=== PATIENT | female | born 1960 ===

== ENCOUNTER 2017-03-31 20:18 | Inpatient (IN) ==
[2017-04-01] MEDS ORDERED: diphenhydrAMINE CAP 25 MG CAPSULE PO PRN (00:06)
[2017-04-01] MEDS ORDERED: MORPHINE 2 MG/1 ML SYRINGE IV PRN (00:06)
[2017-04-01] MEDS ORDERED: DEXTROSE 50% 25 GM/50 ML VIAL IV PRN ×2 (00:06)
[2017-04-01] MEDS ORDERED: GLUCAGON 1 MG VIAL IM PRN ×2 (00:06)
[2017-04-01] MEDS ORDERED: guaiFENesin/DM ER 600-30 MG TABLET PO PRN (00:06)
[2017-04-01] MEDS ORDERED: ACETAMINOPHEN 325 MG TABLET PO PRN (00:06)
[2017-04-01 00:09] LABS: Basophils % 0.5 % (0.0-0.8); Eosinophils # 0.2 10*3/uL (0.0-0.87); Eosinophils % 3.7 % (0.00-10.9); Hematocrit 38.2 VOL% (35.7-47.0); Immature Granulocytes % 0.5 %; Immature Granulocytes Absolute 0.03 #; Lymphocytes # 1.4 10*3/uL (1.4-4.0); Lymphocytes % 23.6 % (21.3-54.2); Mean Corpuscular Hemoglobin 32 PG (27-34); Mean Corpuscular Volume 92.7 FL (87-102); Mean Platelet Volume 13.1 FL (9.6-12.0); Monocytes # 0.4 10*3/uL (0.11-0.8); Neutrophils # 3.8 10*3/uL (1.4-7.4); Neutrophils % 64.7 % (38.7-73.9); Platelet Count 116 T/CUMM (130-400); Red Blood Count 4.12 MC/CUMM (3.8-5.5); Red Cell Distribution Width 13.2 % (9.3-17.3); White Blood Count 5.9 T/CUMM (4-12)
[2017-04-01] MEDS ORDERED: ALBUTEROL/IPRATROPIUM 3 ML NEB RESP TX PRN (00:14)
[2017-04-01 00:36] LABS: Alanine Aminotransferase 26 U/L (13-56); Albumin 2.5 G/DL (3.4-5.0); Alkaline Phosphatase 202 U/L (45-117); Aspartate Amino Transferase 30 U/L (0-37); Bilirubin,Total < 0.39 MG/DL (0.2-1.0); Blood Urea Nitrogen 15 MG/DL (7-18); Glucose 303 MG/DL (74-106); Osmolality,Calculated 292.3 MOS/KG (273-304); Potassium 4.1 MMOL/L (3.5-5.1); Sodium 141 MMOL/L (136-145); Total Protein 6.7 G/DL (6.4-8.3); Troponin I Only < 0.015 NG/ML (0.00-0.045)
[2017-04-01] MEDS: ENOXAPARIN 40 MG/0.4 ML SYRINGE SUBCUT SCH ×2 (01:38→21:51)
[2017-04-01] MEDS ORDERED: NITROGLYCERIN SL 0.4 MG TABLET SL PRN (05:13)
[2017-04-01 05:20] LABS: Basophils % 0.3 % (0.0-0.8); Eosinophils # 0.2 10*3/uL (0.0-0.87); Eosinophils % 3.3 % (0.00-10.9); Hematocrit 38.3 VOL% (35.7-47.0); Hemoglobin 12.7 GM/DL (12.0-16.0); Immature Granulocytes % 0.3 %; Immature Granulocytes Absolute 0.02 #; Lymphocytes # 1.7 10*3/uL (1.4-4.0); Lymphocytes % 29.3 % (21.3-54.2); Mean Corpuscular HGB Conc 33.2 GM/DL (32-36); Mean Corpuscular Hemoglobin 31 PG (27-34); Mean Corpuscular Volume 94.6 FL (87-102); Mean Platelet Volume 11.8 FL (9.6-12.0); Monocytes # 0.4 10*3/uL (0.11-0.8); Neutrophils # 3.5 10*3/uL (1.4-7.4); Neutrophils % 59.8 % (38.7-73.9); Platelet Count 139 T/CUMM (130-400); Red Blood Count 4.05 MC/CUMM (3.8-5.5); Red Cell Distribution Width 13.2 % (9.3-17.3); White Blood Count 5.8 T/CUMM (4-12)
[2017-04-01 05:41] LABS: Alanine Aminotransferase 25 U/L (13-56); Albumin 2.4 G/DL (3.4-5.0); Alkaline Phosphatase 183 U/L (45-117); Aspartate Amino Transferase 30 U/L (0-37); Blood Urea Nitrogen 15 MG/DL (7-18); Calcium 8.4 MG/DL (8.5-10.1); Glucose 280 MG/DL (74-106); Osmolality,Calculated 289.4 MOS/KG (273-304); Potassium 4.3 MMOL/L (3.5-5.1); Sodium 140 MMOL/L (136-145); Total Protein 6.3 G/DL (6.4-8.3); Troponin I Only < 0.015 NG/ML (0.00-0.045)
[2017-04-01] MEDS ORDERED: ASPIRIN CHEW 81 MG TABLET PO ONE ×2 (07:16→07:22)
[2017-04-01 08:28] LABS: Troponin I Only < 0.015 NG/ML (0.00-0.045)
[2017-04-01] MEDS: INSULIN LISPRO 100 UNIT/ML SUBCUT SCH ×5 (08:34→21:49)
[2017-04-01] MEDS ORDERED: ASPIRIN EC 325 MG TABLET PO SCH (09:30)
[2017-04-01] MEDS ORDERED: MAGNESIUM SULF RIDER 2 GM in PREMIX 1 EACH IV PRN (09:33)
[2017-04-01] MEDS ORDERED: POTASSIUM CHLORIDE RIDER 10 MEQ in PREMIX 1 EACH IV PRN (09:33)
[2017-04-01] MEDS ORDERED: SODIUM CHLORIDE 0.45% 1,000 ML IV SCH (10:00)
[2017-04-01] MEDS ORDERED: DIAZEPAM 5 MG TABLET PO ONE (10:30)
[2017-04-01] MEDS: PANTOPRAZOLE 40 MG TABLET PO SCH (10:36)
[2017-04-01 10:51] LABS: INR 1.1
[2017-04-01 10:56] LABS: Apearance,Urine Slightly Hazy (Clear); Bacteria,Urine Many /HPF (Few); Bilirubin,Urine Negative (Negative); Blood, Urine Moderate mg/dL (Negative); Glucose,Urine (UA) 50 mg/dL (Negative); Ketones,Urine Negative (Negative); Nitrite,Urine Negative (Negative); Protein,Urine 30 MG/DL; RBC,Urine 50 /HPF (0-4); Urine Color Yellow (Yellow); Urine Specific Gravity 1.017 (1.001-1.035); Urine Urobilinogen < 2.0 EU/DL (0.2-1.0); WBC,Urine 14 /HPF (0-6)
[2017-04-01] MEDS ORDERED: diphenhydrAMINE CAP 50 MG CAPSULE PO ONE (11:00)
[2017-04-01 11:26] LABS: Risk Ratio 3.51; VLDL CHOLESTEROL 26.6 MG/DL
[2017-04-01] MEDS ORDERED: LIDOCAINE 1% 20 ML VIAL ONE (11:59)
[2017-04-01] MEDS ORDERED: HEPARIN/NACL 0.9% 2 UNITS/ML 2,000 ML IV ONE (11:59)
[2017-04-01] MEDS ORDERED: VERAPAMIL 5 MG/2 ML VIAL ONE (12:42)
[2017-04-01] MEDS ORDERED: NITROGLYCERIN DRIP 50 MG/250 ML BOTTLE IV ONE (12:42)
[2017-04-01] MEDS ORDERED: fentaNYL 100 MCG/2 ML VIAL ONE (12:56)
[2017-04-01] MEDS ORDERED: MIDAZOLAM 2 MG/2 ML VIAL ONE (12:56)
[2017-04-01] MEDS ORDERED: ENOXAPARIN 60 MG/0.6 ML SYRINGE ONE (13:08)
[2017-04-01] MEDS: FLUCONAZOLE 200 MG TABLET PO SCH (14:22)
[2017-04-01] MEDS: CLOTRIMAZOLE 1% CREAM 15 GM TUBE TOP SCH ×2 (15:03→21:50)
[2017-04-01] MEDS ORDERED: INSULIN GLARGINE 100 UNIT/ML SUBCUT SCH (21:00)
[2017-04-01] MEDS: SIMVASTATIN 20 MG TABLET PO SCH (21:52)
[2017-04-02 05:46] LABS: Basophils % 0.4 % (0.0-0.8); Eosinophils # 0.2 10*3/uL (0.0-0.87); Eosinophils % 3.3 % (0.00-10.9); Hematocrit 38.3 VOL% (35.7-47.0); Hemoglobin 13.1 GM/DL (12.0-16.0); Immature Granulocytes % 0.4 %; Immature Granulocytes Absolute 0.02 #; Lymphocytes # 1.5 10*3/uL (1.4-4.0); Lymphocytes % 29.8 % (21.3-54.2); Mean Corpuscular HGB Conc 34.2 GM/DL (32-36); Mean Corpuscular Hemoglobin 32 PG (27-34); Mean Corpuscular Volume 92.3 FL (87-102); Mean Platelet Volume 13.3 FL (9.6-12.0); Monocytes # 0.4 10*3/uL (0.11-0.8); Monocytes % 7.4 % (1.7-12.7); Neutrophils % 58.7 % (38.7-73.9); Platelet Count 109 T/CUMM (130-400); Red Blood Count 4.15 MC/CUMM (3.8-5.5); Red Cell Distribution Width 13.3 % (9.3-17.3); White Blood Count 5.1 T/CUMM (4-12)
[2017-04-02 06:02] LABS: Calcium 8.1 MG/DL (8.5-10.1); Osmolality,Calculated 279.5 MOS/KG (273-304); Potassium 4.3 MMOL/L (3.5-5.1)
[2017-04-02 06:06] LABS: Giant Platelets Few; Hypochromasia 1+; Platelet Estimate Decreased
[2017-04-02] MEDS: FLUCONAZOLE 200 MG TABLET PO SCH (08:42)
[2017-04-02] MEDS: PANTOPRAZOLE 40 MG TABLET PO SCH (08:42)
[2017-04-02] MEDS: ASPIRIN EC 81 MG TABLET PO SCH (08:42)
[2017-04-02] MEDS ORDERED: ceFAZolin 1,000 MG VIAL IRRIG ONE (10:52)
[2017-04-02] MEDS: INSULIN LISPRO 100 UNIT/ML SUBCUT SCH ×7 (11:03→20:21)
[2017-04-02] MEDS: CLOTRIMAZOLE 1% CREAM 15 GM TUBE TOP SCH ×2 (13:02→20:23)
[2017-04-02] MEDS: cefTRIAXone 1,000 MG in SYRINGE 1 EACH IV SCH (13:56)
[2017-04-02] MEDS: ENOXAPARIN 40 MG/0.4 ML SYRINGE SUBCUT SCH (20:21)
[2017-04-02] MEDS: INSULIN GLARGINE 100 UNIT/ML SUBCUT SCH (20:22)
[2017-04-02] MEDS: SIMVASTATIN 20 MG TABLET PO SCH (20:22)
[2017-04-03 05:17] LABS: Basophils % 0.4 % (0.0-0.8); Eosinophils # 0.2 10*3/uL (0.0-0.87); Eosinophils % 3.5 % (0.00-10.9); Hematocrit 40.5 VOL% (35.7-47.0); Hemoglobin 13.9 GM/DL (12.0-16.0); Immature Granulocytes % 0.4 %; Immature Granulocytes Absolute 0.02 #; Lymphocytes # 1.7 10*3/uL (1.4-4.0); Lymphocytes % 30.3 % (21.3-54.2); Mean Corpuscular HGB Conc 34.3 GM/DL (32-36); Mean Corpuscular Hemoglobin 32 PG (27-34); Mean Platelet Volume 12.1 FL (9.6-12.0); Monocytes # 0.4 10*3/uL (0.11-0.8); Monocytes % 7.3 % (1.7-12.7); Neutrophils # 3.2 10*3/uL (1.4-7.4); Neutrophils % 58.1 % (38.7-73.9); Platelet Count 109 T/CUMM (130-400); Red Cell Distribution Width 13.1 % (9.3-17.3); White Blood Count 5.5 T/CUMM (4-12)
[2017-04-03 05:39] LABS: Giant Platelets Few; Hypochromasia 1+; Platelet Estimate Decreased
[2017-04-03 06:01] LABS: Albumin 2.6 G/DL (3.4-5.0); Calcium 8.9 MG/DL (8.5-10.1); Osmolality,Calculated 280.4 MOS/KG (273-304); Potassium 4.2 MMOL/L (3.5-5.1); Total Protein 6.9 G/DL (6.4-8.3)
[2017-04-03] MEDS ORDERED: ceFAZolin 1,000 MG in SYRINGE 1 EACH IV ONE (07:00)
[2017-04-03] MEDS ORDERED: ceFAZolin 1,000 MG VIAL IRRIG ONE (07:00)
[2017-04-03] MEDS: INSULIN LISPRO 100 UNIT/ML SUBCUT SCH ×7 (07:43→21:03)
[2017-04-03] MEDS ORDERED: DIAZEPAM 5 MG TABLET PO ONE (09:00)
[2017-04-03] MEDS ORDERED: diphenhydrAMINE CAP 50 MG CAPSULE PO ONE (09:00)
[2017-04-03] MEDS ORDERED: LIDOCAINE 2%/EPI 20 ML VIAL ONE (09:32)
[2017-04-03] MEDS ORDERED: HEPARIN/NACL 0.9% 2 UNITS/ML 2,000 ML IV ONE (09:32)
[2017-04-03] MEDS ORDERED: ceFAZolin 1,000 MG VIAL ONE ×2 (09:33→09:38)
[2017-04-03] MEDS ORDERED: fentaNYL 100 MCG/2 ML VIAL ONE (09:33)
[2017-04-03] MEDS ORDERED: MIDAZOLAM 2 MG/2 ML VIAL ONE (09:33)
[2017-04-03] MEDS: PANTOPRAZOLE 40 MG TABLET PO SCH (11:46)
[2017-04-03] MEDS: FLUCONAZOLE 200 MG TABLET PO SCH (11:46)
[2017-04-03] MEDS: ASPIRIN EC 81 MG TABLET PO SCH (11:46)
[2017-04-03] MEDS: CLOTRIMAZOLE 1% CREAM 15 GM TUBE TOP SCH (11:47)
[2017-04-03] MEDS: cefTRIAXone 1,000 MG in SYRINGE 1 EACH IV SCH (13:05)
[2017-04-03] MEDS: NYSTATIN POWDER 15 GM BOTTLE TOP SCH ×2 (14:43→21:01)
[2017-04-03] MEDS: LISINOPRIL 10 MG TABLET PO SCH (16:21)
[2017-04-03] MEDS: ERTAPENEM 1,000 MG in SODIUM CHLORIDE 0.9% 100 ML IV SCH (16:30)
[2017-04-03] MEDS: ENOXAPARIN 40 MG/0.4 ML SYRINGE SUBCUT SCH (21:01)
[2017-04-03] MEDS: INSULIN GLARGINE 100 UNIT/ML SUBCUT SCH (21:02)
[2017-04-03] MEDS: SIMVASTATIN 20 MG TABLET PO SCH (21:02)
[2017-04-04 05:40] LABS: Calcium 8.6 MG/DL (8.5-10.1); Osmolality,Calculated 284.4 MOS/KG (273-304); Potassium 4.1 MMOL/L (3.5-5.1)
[2017-04-04 06:14] LABS: Basophils % 0.4 % (0.0-0.8); Eosinophils # 0.2 10*3/uL (0.0-0.87); Eosinophils % 2.7 % (0.00-10.9); Hematocrit 39.9 VOL% (35.7-47.0); Hemoglobin 13.3 GM/DL (12.0-16.0); Immature Granulocytes % 0.5 %; Immature Granulocytes Absolute 0.03 #; Lymphocytes # 1.5 10*3/uL (1.4-4.0); Lymphocytes % 26.7 % (21.3-54.2); Mean Corpuscular HGB Conc 33.3 GM/DL (32-36); Mean Corpuscular Hemoglobin 31 PG (27-34); Mean Corpuscular Volume 93.2 FL (87-102); Mean Platelet Volume 13.1 FL (9.6-12.0); Monocytes # 0.4 10*3/uL (0.11-0.8); Monocytes % 7.5 % (1.7-12.7); Neutrophils # 3.5 10*3/uL (1.4-7.4); Neutrophils % 62.2 % (38.7-73.9); Platelet Count 108 T/CUMM (130-400); Red Blood Count 4.28 MC/CUMM (3.8-5.5); Red Cell Distribution Width 13.2 % (9.3-17.3); White Blood Count 5.6 T/CUMM (4-12)
[2017-04-04] MEDS ORDERED: CLOPIDOGREL 75 MG TABLET PO SCH (10:00)
[2017-04-04] MEDS: NYSTATIN POWDER 15 GM BOTTLE TOP SCH ×2 (10:05→16:20)
[2017-04-04] MEDS: ASPIRIN EC 81 MG TABLET PO SCH (10:05)
[2017-04-04] MEDS: FLUCONAZOLE 200 MG TABLET PO SCH (10:05)
[2017-04-04] MEDS: LISINOPRIL 10 MG TABLET PO SCH (10:05)
[2017-04-04] MEDS: PANTOPRAZOLE 40 MG TABLET PO SCH (10:05)
[2017-04-04] MEDS: INSULIN LISPRO 100 UNIT/ML SUBCUT SCH ×4 (10:06→13:15)
[2017-04-04 13:37] VITALS: BP 121/65
[2017-04-04] MEDS: ERTAPENEM 1,000 MG in SODIUM CHLORIDE 0.9% 100 ML IV SCH (15:19)
== END 2017-04-04 15:53 | disposition home health service (06) | DRG 171 ==
LOC: N.2E 22:19 → SUATTDRO 22:19 → N.CVR 04-01 08:16 → N.ICU 04-01 11:07 → N.TELEN 04-03 14:50
PROVIDERS: ADMIT Internal Medicine; ATTEND Hospitalist
PROC: CLCCHCL (ICD-10-PCS; 2017-04-01 13:45)

== ENCOUNTER 2017-09-04 18:47 | Inpatient (IN) ==
[2017-09-04] MEDS ORDERED: NITROGLYCERIN SL 0.4 MG TABLET SL STA ×2 (19:23→22:11)
[2017-09-04] MEDS ORDERED: DEXTROSE 50% 25 GM/50 ML VIAL IV PRN (22:11)
[2017-09-04] MEDS ORDERED: LORATADINE 10 MG TABLET PO PRN (22:11)
[2017-09-04] MEDS ORDERED: FUROSEMIDE 40 MG/4 ML VIAL IV STA (22:11)
[2017-09-04] MEDS ORDERED: GLUCAGON 1 MG VIAL IM PRN (22:11)
[2017-09-04] MEDS ORDERED: ONDANSETRON 4 MG/2 ML VIAL IV PRN (22:11)
[2017-09-04 22:41] LABS: Basophils % 0.2 % (0.0-0.8); Eosinophils % 0.2 % (0.00-10.9); Hematocrit 43.5 VOL% (35.7-47.0); Hemoglobin 14.6 GM/DL (12.0-16.0); Immature Granulocytes % 0.4 %; Immature Granulocytes Absolute 0.02 #; Lymphocytes # 0.7 10*3/uL (1.4-4.0); Lymphocytes % 14.1 % (21.3-54.2); Mean Corpuscular HGB Conc 33.6 GM/DL (32-36); Mean Corpuscular Hemoglobin 31 PG (27-34); Mean Corpuscular Volume 92.9 FL (87-102); Mean Platelet Volume 12.4 FL (9.6-12.0); Monocytes # 0.1 10*3/uL (0.11-0.8); Monocytes % 1.4 % (1.7-12.7); Neutrophils # 4.3 10*3/uL (1.4-7.4); Neutrophils % 83.7 % (38.7-73.9); Platelet Count 105 T/CUMM (130-400); Red Blood Count 4.68 MC/CUMM (3.8-5.5); Red Cell Distribution Width 13.4 % (9.3-17.3); White Blood Count 5.2 T/CUMM (4-12)
[2017-09-04 22:47] LABS: ABG Base Excess -1.3 MMOL/L (-2.5-2.5); ABG HCO3 23.3 MMOL/L (20-26); ABG Oxygen Saturation 95.2 % (95-100); ABG PCO2 34.9 MM HG (35-48); ABG PH 7.417 (7.35-7.45); ABG PO2 76.3 MM HG (80-95); ABG TCO2 19.2 MMOL/L (23-27); Allen Test Positive; Pt O2 Delivery Device Room Air
[2017-09-04] MEDS: MORPHINE 4 MG/1 ML VIAL IV SCH (22:47)
[2017-09-04] MEDS: INSULIN REGULAR 100 UNIT/ML SUBCUT SCH (22:47)
[2017-09-04] MEDS: CARVEDILOL 3.125 MG TABLET PO SCH (22:47)
[2017-09-04] MEDS: PRAVASTATIN 20 MG TABLET PO SCH (22:48)
[2017-09-04] MEDS: GABAPENTIN 100 MG CAPSULE PO SCH (22:48)
[2017-09-04 23:12] LABS: Albumin 2.8 G/DL (3.4-5.0); Bilirubin,Total 0.7 MG/DL (0.2-1.0); Calcium 9.1 MG/DL (8.5-10.1); Osmolality,Calculated 296.5 MOS/KG (273-304); Potassium 3.8 MMOL/L (3.5-5.1)
[2017-09-04] MEDS: ALBUTEROL/IPRATROPIUM 3 ML NEB RESP TX SCH (23:40)
[2017-09-05] MEDS: MUPIROCIN 2% OINT 22 GM TUBE TOP SCH ×4 (00:33→21:25)
[2017-09-05] MEDS ORDERED: INSULIN GLARGINE 100 UNIT/ML SUBCUT SCH ×3 (01:00→11:43)
[2017-09-05] MEDS: INSULIN REGULAR 100 UNIT/ML SUBCUT SCH ×5 (01:21→21:26)
[2017-09-05] MEDS: MORPHINE 4 MG/1 ML VIAL IV SCH ×6 (03:45→23:08)
[2017-09-05 03:48] LABS: Hematocrit 41.9 VOL% (35.7-47.0); Hemoglobin 14.2 GM/DL (12.0-16.0); Immature Granulocytes % 0.5 %; Immature Granulocytes Absolute 0.03 #; Lymphocytes # 0.7 10*3/uL (1.4-4.0); Lymphocytes % 12.2 % (21.3-54.2); Mean Corpuscular HGB Conc 33.9 GM/DL (32-36); Mean Corpuscular Hemoglobin 32 PG (27-34); Mean Corpuscular Volume 93.5 FL (87-102); Mean Platelet Volume 13.2 FL (9.6-12.0); Monocytes % 0.7 % (1.7-12.7); Neutrophils # 4.8 10*3/uL (1.4-7.4); Neutrophils % 86.6 % (38.7-73.9); Platelet Count 84 T/CUMM (130-400); Red Blood Count 4.48 MC/CUMM (3.8-5.5); Red Cell Distribution Width 13.3 % (9.3-17.3); White Blood Count 5.6 T/CUMM (4-12)
[2017-09-05] MEDS: ALBUTEROL/IPRATROPIUM 3 ML NEB RESP TX SCH ×6 (03:52→23:54)
[2017-09-05 04:28] LABS: Calcium 8.9 MG/DL (8.5-10.1); Osmolality,Calculated 305.7 MOS/KG (273-304); Risk Ratio 3.2; VLDL CHOLESTEROL 12.8 MG/DL
[2017-09-05] MEDS ORDERED: INSULIN REGULAR 100 UNIT/ML IV ONE ×3 (05:08→15:51)
[2017-09-05 06:00] LABS: Apearance,Urine CLEAR (Clear); Bacteria,Urine Occasional /HPF (Few); Bilirubin,Urine Negative (Negative); Blood, Urine Small mg/dL (Negative); Glucose,Urine (UA) >=500 mg/dL (Negative); Ketones,Urine Negative (Negative); Nitrite,Urine Negative (Negative); Protein,Urine Negative; RBC,Urine 1 /HPF (0-4); Squamous Epithelial Cell,Urine Occasional /HPF (0-10); Urine Color Straw (Yellow); Urine Specific Gravity 1.022 (1.001-1.035); Urine Urobilinogen < 2.0 EU/DL (0.2-1.0); WBC,Urine 24 /HPF (0-6)
[2017-09-05] MEDS: SODIUM CHLORIDE 0.9% 1,000 ML IV SCH ×3 (06:26→13:59)
[2017-09-05 08:58] LABS: Albumin 2.7 G/DL (3.4-5.0); Bilirubin,Total 0.5 MG/DL (0.2-1.0); Calcium 8.6 MG/DL (8.5-10.1); Osmolality,Calculated 299.4 MOS/KG (273-304); Potassium 3.9 MMOL/L (3.5-5.1); Total Protein 7.1 G/DL (6.4-8.3)
[2017-09-05] MEDS: PANTOPRAZOLE 40 MG TABLET PO SCH (09:41)
[2017-09-05] MEDS: CARVEDILOL 3.125 MG TABLET PO SCH ×2 (09:42→16:40)
[2017-09-05] MEDS: LEVOFLOXACIN INJ 750 MG in PREMIX 1 EACH IV SCH (09:42)
[2017-09-05] MEDS: ASPIRIN EC 81 MG TABLET PO SCH (09:42)
[2017-09-05] MEDS: ENOXAPARIN 40 MG/0.4 ML SYRINGE SUBCUT SCH (10:09)
[2017-09-05] MEDS: sitaGLIPtin 25 MG TABLET PO SCH ×2 (12:23→12:24)
[2017-09-05 15:48] LABS: Calcium 8.4 MG/DL (8.5-10.1); Osmolality,Calculated 296.4 MOS/KG (273-304); Potassium 3.9 MMOL/L (3.5-5.1)
[2017-09-05] MEDS: INSULIN GLARGINE 100 UNIT/ML SUBCUT SCH (21:26)
[2017-09-05] MEDS: PRAVASTATIN 20 MG TABLET PO SCH (21:26)
[2017-09-05] MEDS: GABAPENTIN 100 MG CAPSULE PO SCH (21:27)
[2017-09-06] MEDS: MORPHINE 4 MG/1 ML VIAL IV SCH ×3 (02:27→09:29)
[2017-09-06 03:51] LABS: Basophils % 0.5 % (0.0-0.8); Eosinophils # 0.2 10*3/uL (0.0-0.87); Eosinophils % 2.3 % (0.00-10.9); Hemoglobin 13.1 GM/DL (12.0-16.0); Immature Granulocytes % 0.3 %; Immature Granulocytes Absolute 0.02 #; Lymphocytes # 2.3 10*3/uL (1.4-4.0); Lymphocytes % 30.7 % (21.3-54.2); Mean Corpuscular HGB Conc 33.6 GM/DL (32-36); Mean Corpuscular Hemoglobin 31 PG (27-34); Mean Corpuscular Volume 92.6 FL (87-102); Monocytes # 0.6 10*3/uL (0.11-0.8); Neutrophils # 4.4 10*3/uL (1.4-7.4); Neutrophils % 58.2 % (38.7-73.9); Platelet Count 83 T/CUMM (130-400); Red Blood Count 4.21 MC/CUMM (3.8-5.5); White Blood Count 7.5 T/CUMM (4-12)
[2017-09-06] MEDS: ALBUTEROL/IPRATROPIUM 3 ML NEB RESP TX SCH ×3 (03:58→11:47)
[2017-09-06 04:18] LABS: Calcium 8.5 MG/DL (8.5-10.1); Osmolality,Calculated 289.3 MOS/KG (273-304); Potassium 3.3 MMOL/L (3.5-5.1)
[2017-09-06 04:52] LABS: Hypochromasia Slight
[2017-09-06 04:53] LABS: Microcytosis 1+
[2017-09-06 08:22] VITALS: BP 105/65
[2017-09-06] MEDS: LEVOFLOXACIN INJ 750 MG in PREMIX 1 EACH IV SCH (08:24)
[2017-09-06] MEDS: CARVEDILOL 3.125 MG TABLET PO SCH (08:26)
[2017-09-06] MEDS: PANTOPRAZOLE 40 MG TABLET PO SCH (08:27)
[2017-09-06] MEDS: ASPIRIN EC 81 MG TABLET PO SCH (08:27)
[2017-09-06] MEDS: ENOXAPARIN 40 MG/0.4 ML SYRINGE SUBCUT SCH (08:27)
[2017-09-06] MEDS: MUPIROCIN 2% OINT 22 GM TUBE TOP SCH (09:11)
[2017-09-06] MEDS: INSULIN REGULAR 100 UNIT/ML SUBCUT SCH (09:16)
[2017-09-06] MEDS: INSULIN GLARGINE 100 UNIT/ML SUBCUT SCH (09:23)
== END 2017-09-06 12:13 | disposition home or self-care (01) | DRG 198 ==
LOC: EDBD → EDUNIT# → N.ED 18:47 → N.EDINP 20:31 → N.TELES 22:11
PROVIDERS: ADMIT Hospitalist; ATTEND Hospitalist

== ENCOUNTER 2017-12-09 20:52 | Inpatient (IN) ==
[2017-12-10] MEDS ORDERED: PROMETHAZINE 25 MG/1 ML VIAL IM PRN (00:03)
[2017-12-10] MEDS ORDERED: diphenhydrAMINE CAP 25 MG CAPSULE PO PRN (00:03)
[2017-12-10] MEDS ORDERED: GLUCAGON 1 MG VIAL IM PRN (00:03)
[2017-12-10] MEDS ORDERED: DEXTROSE 50% 25 GM/50 ML VIAL IV PRN (00:03)
[2017-12-10] MEDS ORDERED: NICOTINE 21 MG/24 HR PATCH TRANSDERM PRN (00:03)
[2017-12-10] MEDS ORDERED: ONDANSETRON 4 MG/2 ML VIAL IV PRN (00:03)
[2017-12-10] MEDS ORDERED: MEPERIDINE 25 MG/1 ML VIAL IV PRN (00:10)
[2017-12-10] MEDS ORDERED: NITROGLYCERIN SL 0.4 MG TABLET SL PRN (00:11)
[2017-12-10] MEDS ORDERED: GLYCERIN OP PRN (00:11)
[2017-12-10] MEDS ORDERED: DEXTRAN OP PRN (00:11)
[2017-12-10] MEDS ORDERED: HYPROMELLOSE OP PRN (00:11)
[2017-12-10] MEDS ORDERED: [UNRECOGNIZED DRUG - OTHER] OP PRN (00:11)
[2017-12-10] MEDS ORDERED: ALBUTEROL 2.5 MG/3 ML NEB RESP TX PRN (00:11)
[2017-12-10] MEDS ORDERED: LORATADINE 10 MG TABLET PO PRN (00:11)
[2017-12-10] MEDS ORDERED: MINERAL OIL/PETROLATUM OPH OINT 3.5 GM TUBE BOTH EYES PRN (00:11)
[2017-12-10 01:01] LABS: Basophils % 0.3 % (0.0-0.8); Eosinophils % 0.5 % (0.00-10.9); Hematocrit 26.9 VOL% (35.7-47.0); Hemoglobin 8.7 GM/DL (12.0-16.0); Immature Granulocytes % 1.1 %; Immature Granulocytes Absolute 0.09 #; Lymphocytes # 1.4 10*3/uL (1.4-4.0); Lymphocytes % 17.3 % (21.3-54.2); Mean Corpuscular HGB Conc 32.3 GM/DL (32-36); Mean Corpuscular Hemoglobin 31 PG (27-34); Mean Corpuscular Volume 96.8 FL (87-102); Mean Platelet Volume 12.3 FL (9.6-12.0); Monocytes # 0.4 10*3/uL (0.11-0.8); Monocytes % 4.6 % (1.7-12.7); Neutrophils # 6.1 10*3/uL (1.4-7.4); Neutrophils % 76.2 % (38.7-73.9); Platelet Count 105 T/CUMM (130-400); Red Blood Count 2.78 MC/CUMM (3.8-5.5); Red Cell Distribution Width 13.7 % (9.3-17.3)
[2017-12-10 01:13] LABS: Alanine Aminotransferase 19 U/L (13-56); Albumin 2.4 G/DL (3.4-5.0); Alkaline Phosphatase 108 U/L (45-117); Aspartate Amino Transferase 20 U/L (0-37); Bilirubin,Total < 0.39 MG/DL (0.2-1.0); Blood Urea Nitrogen 22 MG/DL (7-18); Calcium 7.8 MG/DL (8.5-10.1); Glucose 255 MG/DL (74-106); Osmolality,Calculated 297.8 MOS/KG (273-304); Potassium 4.3 MMOL/L (3.5-5.1); Sodium 144 MMOL/L (136-145); Total Protein 5.7 G/DL (6.4-8.3)
[2017-12-10] MEDS ORDERED: SODIUM CHLORIDE 0.9% 1,000 ML IV PRN (02:30)
[2017-12-10 06:34] LABS: Basophils % 0.4 % (0.0-0.8); Eosinophils # 0.2 10*3/uL (0.0-0.87); Eosinophils % 1.8 % (0.00-10.9); Hemoglobin 8.7 GM/DL (12.0-16.0); Immature Granulocytes % 0.7 %; Immature Granulocytes Absolute 0.06 #; Lymphocytes # 1.9 10*3/uL (1.4-4.0); Lymphocytes % 22.8 % (21.3-54.2); Mean Corpuscular HGB Conc 32.2 GM/DL (32-36); Mean Corpuscular Hemoglobin 31 PG (27-34); Mean Corpuscular Volume 95.1 FL (87-102); Mean Platelet Volume 12.8 FL (9.6-12.0); Monocytes # 0.6 10*3/uL (0.11-0.8); Monocytes % 6.9 % (1.7-12.7); Neutrophils # 5.6 10*3/uL (1.4-7.4); Neutrophils % 67.4 % (38.7-73.9); Platelet Count 100 T/CUMM (130-400); Red Blood Count 2.84 MC/CUMM (3.8-5.5); Red Cell Distribution Width 13.6 % (9.3-17.3); White Blood Count 8.3 T/CUMM (4-12)
[2017-12-10 07:06] LABS: Macrocytosis Slight
[2017-12-10 07:58] LABS: Hematocrit 27.3 VOL% (35.7-47.0); Hemoglobin 8.6 GM/DL (12.0-16.0)
[2017-12-10] MEDS ORDERED: amLODIPine 5 MG TABLET PO SCH (09:00)
[2017-12-10] MEDS ORDERED: ISOSORBIDE MONONITRATE 20 MG TABLET PO SCH (09:00)
[2017-12-10] MEDS ORDERED: PANTOPRAZOLE 40 MG VIAL IV SCH (09:00)
[2017-12-10] MEDS ORDERED: LISINOPRIL 10 MG TABLET PO SCH (09:00)
[2017-12-10] MEDS ORDERED: LOSARTAN 25 MG TABLET PO SCH (09:00)
[2017-12-10] MEDS ORDERED: METOPROLOL SUCCINATE XL 25 MG TABLET PO SCH (09:00)
[2017-12-10] MEDS ORDERED: CARVEDILOL 3.125 MG TABLET PO SCH (09:00)
[2017-12-10] MEDS: POTASSIUM CHLORIDE 10 MEQ TABLET PO SCH ×2 (09:33→21:39)
[2017-12-10] MEDS: PANTOPRAZOLE 40 MG TABLET PO SCH (09:33)
[2017-12-10] MEDS: GABAPENTIN 300 MG CAPSULE PO SCH ×3 (09:33→21:39)
[2017-12-10] MEDS: SPIRONOLACTONE 25 MG TABLET PO SCH (09:33)
[2017-12-10] MEDS: FUROSEMIDE 40 MG TABLET PO SCH (09:34)
[2017-12-10] MEDS: POLYETHYLENE GLYCOL POWDER 17 GM PACK PO SCH ×3 (09:36→21:39)
[2017-12-10] MEDS: INSULIN GLARGINE 100 UNIT/ML SUBCUT SCH ×2 (09:36→21:11)
[2017-12-10] MEDS: INSULIN LISPRO 100 UNIT/ML SUBCUT SCH ×3 (09:36→17:30)
[2017-12-10] MEDS: INSULIN REGULAR 100 UNIT/ML SUBCUT SCH ×4 (09:37→21:05)
[2017-12-10] MEDS ORDERED: FUROSEMIDE 40 MG/4 ML VIAL IV ONE (13:53)
[2017-12-10] MEDS: NYSTATIN POWDER 15 GM BOTTLE TOP SCH ×2 (14:14→21:39)
[2017-12-10] MEDS ORDERED: SODIUM CHLORIDE 0.9% 500 ML IV ONE (14:48)
[2017-12-10] MEDS ORDERED: ALBUMIN 25% 25 GM in PREMIX 1 EACH IV ONE (14:54)
[2017-12-10 18:33] LABS: Hematocrit 29.3 VOL% (35.7-47.0); Hemoglobin 9.6 GM/DL (12.0-16.0)
[2017-12-10 19:54] LABS: Hematocrit 30.3 VOL% (35.7-47.0)
[2017-12-10] MEDS: MAGNESIUM OXIDE 400 MG TABLET PO SCH (21:39)
[2017-12-10] MEDS: ATORVASTATIN 40 MG TABLET PO SCH (21:39)
[2017-12-11 06:32] LABS: Basophils % 0.3 % (0.0-0.8); Eosinophils # 0.3 10*3/uL (0.0-0.87); Eosinophils % 3.8 % (0.00-10.9); Hematocrit 30.2 VOL% (35.7-47.0); Hemoglobin 9.7 GM/DL (12.0-16.0); Immature Granulocytes % 0.8 %; Immature Granulocytes Absolute 0.05 #; Lymphocytes # 1.7 10*3/uL (1.4-4.0); Lymphocytes % 25.8 % (21.3-54.2); Mean Corpuscular HGB Conc 32.1 GM/DL (32-36); Mean Corpuscular Hemoglobin 31 PG (27-34); Mean Corpuscular Volume 95.9 FL (87-102); Mean Platelet Volume 10.6 FL (9.6-12.0); Monocytes # 0.5 10*3/uL (0.11-0.8); Neutrophils # 4.1 10*3/uL (1.4-7.4); Neutrophils % 62.3 % (38.7-73.9); Platelet Count 102 T/CUMM (130-400); Red Blood Count 3.15 MC/CUMM (3.8-5.5); Red Cell Distribution Width 14.4 % (9.3-17.3); White Blood Count 6.6 T/CUMM (4-12)
[2017-12-11 07:08] LABS: Albumin 2.6 G/DL (3.4-5.0); Bilirubin,Total 0.5 MG/DL (0.2-1.0); Calcium 7.8 MG/DL (8.5-10.1); Osmolality,Calculated 286.8 MOS/KG (273-304); Potassium 3.6 MMOL/L (3.5-5.1); Total Protein 5.8 G/DL (6.4-8.3)
[2017-12-11 07:12] LABS: Hematocrit 29.8 VOL% (35.7-47.0); Hemoglobin 9.9 GM/DL (12.0-16.0)
[2017-12-11] MEDS: POTASSIUM CHLORIDE 10 MEQ TABLET PO SCH ×2 (09:32→21:17)
[2017-12-11] MEDS: GABAPENTIN 300 MG CAPSULE PO SCH ×3 (09:32→21:17)
[2017-12-11] MEDS: SPIRONOLACTONE 25 MG TABLET PO SCH (09:32)
[2017-12-11] MEDS: PANTOPRAZOLE 40 MG TABLET PO SCH (09:32)
[2017-12-11] MEDS: FUROSEMIDE 40 MG TABLET PO SCH (09:32)
[2017-12-11] MEDS: INSULIN GLARGINE 100 UNIT/ML SUBCUT SCH ×2 (09:33→21:18)
[2017-12-11] MEDS: POLYETHYLENE GLYCOL POWDER 17 GM PACK PO SCH ×3 (09:33→21:17)
[2017-12-11] MEDS: INSULIN REGULAR 100 UNIT/ML SUBCUT SCH ×4 (09:33→21:17)
[2017-12-11] MEDS: INSULIN LISPRO 100 UNIT/ML SUBCUT SCH ×3 (09:33→16:25)
[2017-12-11] MEDS: NYSTATIN POWDER 15 GM BOTTLE TOP SCH ×2 (13:00→21:18)
[2017-12-11 19:22] LABS: Hematocrit 30.9 VOL% (35.7-47.0); Hemoglobin 10.2 GM/DL (12.0-16.0)
[2017-12-11] MEDS: MAGNESIUM OXIDE 400 MG TABLET PO SCH (21:17)
[2017-12-11] MEDS: ATORVASTATIN 40 MG TABLET PO SCH (21:17)
[2017-12-12 05:20] LABS: Basophils % 0.5 % (0.0-0.8); Eosinophils # 0.2 10*3/uL (0.0-0.87); Eosinophils % 3.2 % (0.00-10.9); Hematocrit 30.4 VOL% (35.7-47.0); Hemoglobin 9.8 GM/DL (12.0-16.0); Immature Granulocytes % 0.5 %; Immature Granulocytes Absolute 0.03 #; Lymphocytes # 1.7 10*3/uL (1.4-4.0); Lymphocytes % 26.4 % (21.3-54.2); Mean Corpuscular HGB Conc 32.2 GM/DL (32-36); Mean Corpuscular Hemoglobin 31 PG (27-34); Mean Corpuscular Volume 96.5 FL (87-102); Mean Platelet Volume 11.6 FL (9.6-12.0); Monocytes # 0.5 10*3/uL (0.11-0.8); Monocytes % 8.3 % (1.7-12.7); Neutrophils % 61.1 % (38.7-73.9); Platelet Count 105 T/CUMM (130-400); Red Blood Count 3.15 MC/CUMM (3.8-5.5); Red Cell Distribution Width 14.2 % (9.3-17.3); White Blood Count 6.5 T/CUMM (4-12)
[2017-12-12 06:15] LABS: Platelet Estimate Normal; Polychromasia Few
[2017-12-12 08:17] VITALS: BP 123/65
[2017-12-12] MEDS: GABAPENTIN 300 MG CAPSULE PO SCH (08:35)
[2017-12-12] MEDS: POTASSIUM CHLORIDE 10 MEQ TABLET PO SCH (08:35)
[2017-12-12] MEDS: POLYETHYLENE GLYCOL POWDER 17 GM PACK PO SCH (08:35)
[2017-12-12] MEDS: INSULIN REGULAR 100 UNIT/ML SUBCUT SCH (08:35)
[2017-12-12] MEDS: SPIRONOLACTONE 25 MG TABLET PO SCH (08:35)
[2017-12-12] MEDS: INSULIN LISPRO 100 UNIT/ML SUBCUT SCH (08:35)
[2017-12-12] MEDS: FUROSEMIDE 40 MG TABLET PO SCH (08:36)
[2017-12-12] MEDS: PANTOPRAZOLE 40 MG TABLET PO SCH (08:36)
[2017-12-12] MEDS: INSULIN GLARGINE 100 UNIT/ML SUBCUT SCH (08:39)
[2017-12-12] MEDS: NYSTATIN POWDER 15 GM BOTTLE TOP SCH (08:40)
== END 2017-12-12 10:45 | disposition home or self-care (01) | DRG 810 ==
LOC: SUATTDRO 23:00 → N.TELEN 23:00 → N.2E 12-11 17:14
PROVIDERS: ADMIT Internal Medicine; ATTEND Family Medicine

== ENCOUNTER 2018-04-01 13:12 | Inpatient (IN) ==
[2018-04-01] MEDS ORDERED: ALBUTEROL 2.5 MG/3 ML NEB RESP TX PRN (15:51)
[2018-04-01] MEDS ORDERED: BISACODYL 5 MG TABLET PO PRN (15:51)
[2018-04-01] MEDS ORDERED: ONDANSETRON 4 MG/2 ML VIAL IV PRN (15:51)
[2018-04-01] MEDS ORDERED: GLUCAGON 1 MG VIAL IM PRN (15:51)
[2018-04-01] MEDS ORDERED: DEXTROSE 50% 25 GM/50 ML SYRINGE IV PRN (15:51)
[2018-04-01] MEDS ORDERED: NICOTINE 21 MG/24 HR PATCH TRANSDERM PRN (15:51)
[2018-04-01] MEDS: PANTOPRAZOLE 40 MG VIAL IV SCH (16:30)
[2018-04-01] MEDS ORDERED: methylPREDNISolone SOD SUC 125 MG/2 ML VIAL IV ONE (16:35)
[2018-04-01] MEDS ORDERED: cefTRIAXone 1,000 MG in SYRINGE 1 EACH IV SCH (17:00)
[2018-04-01 17:34] LABS: Calcium 8.7 MG/DL (8.5-10.1); Osmolality,Calculated 280.5 MOS/KG (273-304); Potassium 4.5 MMOL/L (3.5-5.1)
[2018-04-01] MEDS: PIPERACILLIN/TAZOBACTAM 3,375 MG in SODIUM CHLORIDE 0.9% 100 ML IV SCH (17:47)
[2018-04-01] MEDS: INSULIN LISPRO 100 UNIT/ML SUBCUT SCH ×2 (17:52→21:50)
[2018-04-01] MEDS: methylPREDNISolone SOD SUC 125 MG/2 ML VIAL IV SCH (17:53)
[2018-04-01 18:27] LABS: Apearance,Urine CLOUDY (Clear); Bacteria,Urine Few /HPF (Few); Bilirubin,Urine Negative (Negative); Blood, Urine Moderate mg/dL (Negative); Glucose,Urine (UA) Negative (Negative); Hyaline Casts,Urine 6 /LPF (0-3); Ketones,Urine Negative (Negative); Mucus,Urine Occasional /LPF (Occasional); Nitrite,Urine Negative (Negative); Protein,Urine 30 MG/DL; RBC,Urine 35 /HPF (0-4); Squamous Epithelial Cell,Urine Occasional /HPF (0-10); Urine Color Yellow (Yellow); Urine Specific Gravity 1.013 (1.001-1.035); Urine Urobilinogen < 2.0 EU/DL (0.2-1.0); WBC,Urine 335 /HPF (0-6)
[2018-04-01] MEDS: SODIUM CHLORIDE 0.45% 1,000 ML IV SCH (18:53)
[2018-04-01] MEDS ORDERED: MAGNESIUM SULF RIDER 2 GM in PREMIX 1 EACH IV PRN (19:00)
[2018-04-01] MEDS ORDERED: MAGNESIUM SULF RIDER 4 GM in PREMIX 1 EACH IV PRN (19:00)
[2018-04-01] MEDS: MORPHINE 4 MG/1 ML VIAL IV PRN (21:29)
[2018-04-01] MEDS: ENOXAPARIN 40 MG/0.4 ML SYRINGE SUBCUT SCH (21:51)
[2018-04-02 01:05] LABS: Basophils # 0.1 10*3/uL (0.0-0.2); Basophils % 0.2 % (0.0-0.8); Hematocrit 35.7 VOL% (35.7-47.0); Hemoglobin 11.1 GM/DL (12.0-16.0); Immature Granulocytes % 0.8 %; Immature Granulocytes Absolute 0.19 #; Lymphocytes # 0.5 10*3/uL (1.4-4.0); Lymphocytes % 2.1 % (21.3-54.2); Mean Corpuscular HGB Conc 31.1 GM/DL (32-36); Mean Corpuscular Hemoglobin 27 PG (27-34); Mean Corpuscular Volume 86.4 FL (87-102); Mean Platelet Volume 13.2 FL (9.6-12.0); Monocytes # 0.4 10*3/uL (0.11-0.8); Monocytes % 1.6 % (1.7-12.7); Neutrophils # 22.5 10*3/uL (1.4-7.4); Neutrophils % 95.3 % (38.7-73.9); Red Blood Count 4.13 MC/CUMM (3.8-5.5); Red Cell Distribution Width 17.2 % (9.3-17.3); White Blood Count 23.6 T/CUMM (4-12)
[2018-04-02] MEDS: PIPERACILLIN/TAZOBACTAM 3,375 MG in SODIUM CHLORIDE 0.9% 100 ML IV SCH ×3 (01:05→17:47)
[2018-04-02] MEDS: methylPREDNISolone SOD SUC 125 MG/2 ML VIAL IV SCH ×3 (01:05→17:19)
[2018-04-02 01:06] LABS: Platelet Count 67 T/CUMM (130-400)
[2018-04-02 01:23] LABS: Albumin 2.4 G/DL (3.4-5.0); Bilirubin,Total 0.7 MG/DL (0.2-1.0); Calcium 8.3 MG/DL (8.5-10.1); Osmolality,Calculated 286.1 MOS/KG (273-304); Potassium 4.8 MMOL/L (3.5-5.1)
[2018-04-02 01:31] LABS: Band Neutrophils 7 % (0-10); Lymphocytes 2 % (20-55); Segmented Neutrophils 90 % (50-85)
[2018-04-02 01:33] LABS: Platelet Estimate Decreased
[2018-04-02 01:34] LABS: Hypochromasia Slight; Total Cells Counted 100
[2018-04-02] MEDS ORDERED: LORATADINE 10 MG TABLET PO PRN (09:08)
[2018-04-02] MEDS ORDERED: NITROGLYCERIN SL 0.4 MG TABLET SL PRN (09:08)
[2018-04-02] MEDS ORDERED: POLYVINYL ALCOHOL 1.4% OPH SOLN 15 ML BOTTLE BOTH EYES PRN (09:08)
[2018-04-02] MEDS ORDERED: SODIUM CHLORIDE 0.9% 1,000 ML IV ONE (09:19)
[2018-04-02] MEDS: INSULIN LISPRO 100 UNIT/ML SUBCUT SCH ×6 (09:26→20:25)
[2018-04-02] MEDS ORDERED: SODIUM CHLORIDE 0.9% 1,000 ML IV SCH (10:30)
[2018-04-02] MEDS ORDERED: ENOXAPARIN 150 MG/ML SYRINGE SUBCUT SCH (13:00)
[2018-04-02] MEDS: SODIUM CHLORIDE 0.45% 1,000 ML IV SCH (14:19)
[2018-04-02] MEDS: PANTOPRAZOLE 40 MG VIAL IV SCH (16:54)
[2018-04-02] MEDS: MORPHINE 4 MG/1 ML VIAL IV PRN (17:16)
[2018-04-02] MEDS: ENOXAPARIN 40 MG/0.4 ML SYRINGE SUBCUT SCH (20:24)
[2018-04-02] MEDS: ATORVASTATIN 40 MG TABLET PO SCH (20:25)
[2018-04-03] MEDS: methylPREDNISolone SOD SUC 125 MG/2 ML VIAL IV SCH ×2 (00:38→10:13)
[2018-04-03] MEDS: PIPERACILLIN/TAZOBACTAM 3,375 MG in SODIUM CHLORIDE 0.9% 100 ML IV SCH ×3 (00:39→19:22)
[2018-04-03 05:51] LABS: Basophils % 0.1 % (0.0-0.8); Hematocrit 36.6 VOL% (35.7-47.0); Hemoglobin 11.2 GM/DL (12.0-16.0); Immature Granulocytes % 0.5 %; Lymphocytes # 0.7 10*3/uL (1.4-4.0); Lymphocytes % 3.7 % (21.3-54.2); Mean Corpuscular HGB Conc 30.6 GM/DL (32-36); Mean Corpuscular Hemoglobin 27 PG (27-34); Mean Corpuscular Volume 87.4 FL (87-102); Mean Platelet Volume 12.9 FL (9.6-12.0); Monocytes # 0.5 10*3/uL (0.11-0.8); Monocytes % 2.6 % (1.7-12.7); Neutrophils # 17.4 10*3/uL (1.4-7.4); Neutrophils % 93.1 % (38.7-73.9); Platelet Count 88 T/CUMM (130-400); Red Blood Count 4.19 MC/CUMM (3.8-5.5); Red Cell Distribution Width 17.6 % (9.3-17.3); White Blood Count 18.8 T/CUMM (4-12)
[2018-04-03 06:09] LABS: Calcium 8.1 MG/DL (8.5-10.1); Osmolality,Calculated 297.8 MOS/KG (273-304); Potassium 4.6 MMOL/L (3.5-5.1)
[2018-04-03 06:21] LABS: Band Neutrophils 1 % (0-10); Lymphocytes 2 % (20-55); Platelet Estimate Decreased; Segmented Neutrophils 97 % (50-85); Total Cells Counted 100
[2018-04-03 06:22] LABS: Polychromasia Few
[2018-04-03] MEDS: SODIUM CHLORIDE 0.9% 1,000 ML IV SCH (08:01)
[2018-04-03] MEDS: ASPIRIN EC 81 MG TABLET PO SCH (10:13)
[2018-04-03] MEDS: INSULIN LISPRO 100 UNIT/ML SUBCUT SCH ×7 (10:14→20:48)
[2018-04-03] MEDS: MORPHINE 4 MG/1 ML VIAL IV PRN ×2 (12:32→22:48)
[2018-04-03] MEDS: CIPROFLOXACIN 250 MG TABLET PO SCH ×2 (17:33→23:23)
[2018-04-03] MEDS: ENOXAPARIN 40 MG/0.4 ML SYRINGE SUBCUT SCH (20:48)
[2018-04-03] MEDS: PANTOPRAZOLE 40 MG VIAL IV SCH (20:48)
[2018-04-03] MEDS: ATORVASTATIN 40 MG TABLET PO SCH (20:49)
[2018-04-04] MEDS: methylPREDNISolone SOD SUC 40 MG/1 ML VIAL IV SCH ×3 (00:30→23:39)
[2018-04-04] MEDS: PIPERACILLIN/TAZOBACTAM 3,375 MG in SODIUM CHLORIDE 0.9% 100 ML IV SCH ×2 (00:34→16:05)
[2018-04-04 05:45] LABS: Basophils % 0.1 % (0.0-0.8); Hematocrit 34.8 VOL% (35.7-47.0); Hemoglobin 10.7 GM/DL (12.0-16.0); Immature Granulocytes % 0.8 %; Lymphocytes # 0.7 10*3/uL (1.4-4.0); Lymphocytes % 5.3 % (21.3-54.2); Mean Corpuscular HGB Conc 30.7 GM/DL (32-36); Mean Corpuscular Hemoglobin 27 PG (27-34); Mean Corpuscular Volume 88.1 FL (87-102); Monocytes # 0.4 10*3/uL (0.11-0.8); Monocytes % 3.6 % (1.7-12.7); Neutrophils # 11.2 10*3/uL (1.4-7.4); Neutrophils % 90.2 % (38.7-73.9); Red Blood Count 3.95 MC/CUMM (3.8-5.5); Red Cell Distribution Width 17.5 % (9.3-17.3); White Blood Count 12.4 T/CUMM (4-12)
[2018-04-04 05:49] LABS: Platelet Count 81 T/CUMM (130-400)
[2018-04-04 05:59] LABS: Calcium 7.6 MG/DL (8.5-10.1); Osmolality,Calculated 297.3 MOS/KG (273-304); Potassium 4.1 MMOL/L (3.5-5.1)
[2018-04-04 06:31] LABS: Hypochromasia 1+; Microcytosis 1+
[2018-04-04 06:32] LABS: Platelet Estimate Decreased
[2018-04-04] MEDS: INSULIN LISPRO 100 UNIT/ML SUBCUT SCH ×8 (07:30→20:46)
[2018-04-04] MEDS ORDERED: PROPOFOL 200 MG/20 ML VIAL IV ONE (08:34)
[2018-04-04] MEDS ORDERED: fentaNYL 100 MCG/2 ML VIAL ONE (08:35)
[2018-04-04] MEDS ORDERED: MIDAZOLAM 2 MG/2 ML VIAL ONE (08:35)
[2018-04-04] MEDS ORDERED: ONDANSETRON 4 MG/2 ML VIAL ONE (08:35)
[2018-04-04] MEDS ORDERED: ROCURONIUM 100 MG/10 ML VIAL IV ONE (08:35)
[2018-04-04] MEDS ORDERED: SUCCINYLCHOLINE 200 MG/10 ML VIAL ONE (08:35)
[2018-04-04] MEDS ORDERED: DEXAMETHASONE 10 MG/1 ML VIAL ONE (08:35)
[2018-04-04] MEDS ORDERED: SEVOFLURANE 1 UNIT/15 MINUTE INH ONE (08:35)
[2018-04-04] MEDS ORDERED: PHENYLEPHRINE 1 MG/10 ML SYRINGE IV ONE (08:35)
[2018-04-04] MEDS: CIPROFLOXACIN 250 MG TABLET PO SCH ×2 (16:04→20:46)
[2018-04-04] MEDS: ASPIRIN EC 81 MG TABLET PO SCH (16:05)
[2018-04-04] MEDS: MORPHINE 4 MG/1 ML VIAL IV PRN (20:44)
[2018-04-04] MEDS: PANTOPRAZOLE 40 MG VIAL IV SCH (20:45)
[2018-04-04] MEDS: ATORVASTATIN 40 MG TABLET PO SCH (20:46)
[2018-04-04] MEDS: ENOXAPARIN 40 MG/0.4 ML SYRINGE SUBCUT SCH (20:49)
[2018-04-04] MEDS: SODIUM CHLORIDE 0.9% 1,000 ML IV SCH ×2 (21:52)
[2018-04-05] MEDS: PIPERACILLIN/TAZOBACTAM 3,375 MG in SODIUM CHLORIDE 0.9% 100 ML IV SCH ×3 (00:45→17:06)
[2018-04-05] MEDS: INSULIN LISPRO 100 UNIT/ML SUBCUT SCH ×7 (09:18→21:54)
[2018-04-05] MEDS: ASPIRIN EC 81 MG TABLET PO SCH (09:22)
[2018-04-05] MEDS: CIPROFLOXACIN 250 MG TABLET PO SCH ×2 (09:22→21:53)
[2018-04-05] MEDS: methylPREDNISolone SOD SUC 40 MG/1 ML VIAL IV SCH ×2 (12:11→22:40)
[2018-04-05] MEDS: SODIUM CHLORIDE 0.9% 1,000 ML IV SCH (21:53)
[2018-04-05] MEDS: ATORVASTATIN 40 MG TABLET PO SCH (21:53)
[2018-04-05] MEDS: ENOXAPARIN 40 MG/0.4 ML SYRINGE SUBCUT SCH (21:53)
[2018-04-05] MEDS: PANTOPRAZOLE 40 MG VIAL IV SCH (21:53)
[2018-04-05] MEDS: MORPHINE 4 MG/1 ML VIAL IV PRN (22:40)
[2018-04-06] MEDS: PIPERACILLIN/TAZOBACTAM 3,375 MG in SODIUM CHLORIDE 0.9% 100 ML IV SCH ×2 (00:10→08:24)
[2018-04-06] MEDS: SODIUM CHLORIDE 0.9% 1,000 ML IV SCH (00:12)
[2018-04-06 06:06] LABS: Basophils % 0.1 % (0.0-0.8); Hematocrit 35.5 VOL% (35.7-47.0); Hemoglobin 10.9 GM/DL (12.0-16.0); Immature Granulocytes % 4.3 %; Immature Granulocytes Absolute 0.33 #; Lymphocytes # 0.8 10*3/uL (1.4-4.0); Lymphocytes % 9.9 % (21.3-54.2); Mean Corpuscular HGB Conc 30.7 GM/DL (32-36); Mean Corpuscular Hemoglobin 27 PG (27-34); Mean Corpuscular Volume 88.1 FL (87-102); Mean Platelet Volume 12.4 FL (9.6-12.0); Monocytes # 0.4 10*3/uL (0.11-0.8); Monocytes % 4.7 % (1.7-12.7); Neutrophils # 6.2 10*3/uL (1.4-7.4); Red Blood Count 4.03 MC/CUMM (3.8-5.5); Red Cell Distribution Width 17.5 % (9.3-17.3); White Blood Count 7.7 T/CUMM (4-12)
[2018-04-06 06:08] LABS: Platelet Count 71 T/CUMM (130-400)
[2018-04-06 06:26] LABS: Calcium 8.2 MG/DL (8.5-10.1); Osmolality,Calculated 291.3 MOS/KG (273-304); Potassium 4.4 MMOL/L (3.5-5.1)
[2018-04-06 06:35] LABS: Platelet Estimate Decreased
[2018-04-06 06:36] LABS: Schistocytes Few
[2018-04-06] MEDS: CIPROFLOXACIN 250 MG TABLET PO SCH (08:22)
[2018-04-06] MEDS: ASPIRIN EC 81 MG TABLET PO SCH (08:22)
[2018-04-06] MEDS: methylPREDNISolone SOD SUC 40 MG/1 ML VIAL IV SCH ×2 (08:23→11:44)
[2018-04-06] MEDS: INSULIN LISPRO 100 UNIT/ML SUBCUT SCH ×4 (08:23→12:05)
[2018-04-06 12:34] VITALS: BP 151/74
== END 2018-04-06 14:55 | disposition home or self-care (01) | DRG 720 ==
LOC: N.CC 15:44 → SUATTDRO 15:44 → N.5E 19:17
PROVIDERS: ADMIT Internal Medicine; ATTEND Internal Medicine

== ENCOUNTER 2020-07-07 16:46 | Inpatient (IN) ==
[2020-07-07] MEDS ORDERED: ALBUTEROL 2.5 MG/3 ML NEB RESP TX PRN (19:49)
[2020-07-07] MEDS ORDERED: DEXTROSE 50% 25 GM/50 ML VIAL IV PRN (19:49)
[2020-07-07] MEDS ORDERED: ONDANSETRON 4 MG/2 ML VIAL IV PRN (19:49)
[2020-07-07] MEDS ORDERED: GLUCAGON 1 MG VIAL IM PRN (19:49)
[2020-07-07] MEDS ORDERED: DEXTROSE 10% 500 ML IV SCH (20:00)
[2020-07-07 20:29] LABS: Albumin 2.1 G/DL (3.4-5.0); Bilirubin,Total 0.9 MG/DL (0.2-1.0); Calcium 8.5 MG/DL (8.5-10.1); Osmolality,Calculated 275.7 MOS/KG (273-304); Potassium 4.2 MMOL/L (3.5-5.1); Total Protein 7.3 G/DL (6.4-8.2)
[2020-07-07] MEDS: INSULIN LISPRO 100 UNIT/ML SUBCUT SCH ×2 (20:32→22:11)
[2020-07-07] MEDS: FAMOTIDINE 20 MG/2 ML VIAL IV SCH (21:34)
[2020-07-07] MEDS: ENOXAPARIN 40 MG/0.4 ML SYRINGE SUBCUT SCH (21:34)
[2020-07-08] MEDS: INSULIN LISPRO 100 UNIT/ML SUBCUT SCH ×9 (00:10→20:09)
[2020-07-08] MEDS ORDERED: HYDROCORTISONE 100 MG VIAL IV SCH (01:00)
[2020-07-08 05:26] LABS: Hematocrit 31.4 VOL% (35.7-47.0); Hemoglobin 10.6 GM/DL (12.0-16.0); Immature Granulocytes % 0.7 %; Immature Granulocytes Absolute 0.03 #; Lymphocytes # 0.4 10*3/uL (1.4-4.0); Lymphocytes % 10.4 % (21.3-54.2); Mean Corpuscular HGB Conc 33.8 GM/DL (32-36); Mean Corpuscular Volume 111.3 FL (87-102); Mean Platelet Volume 11.6 FL (9.6-12.0); Monocytes % 1.4 % (1.7-12.7); Neutrophils % 87.5 % (38.7-73.9); Red Blood Count 2.82 MC/CUMM (3.8-5.5); Red Cell Distribution Width 14.8 % (9.3-17.3); White Blood Count 4.2 T/CUMM (4-12)
[2020-07-08 05:32] LABS: Platelet Count 75 T/CUMM (130-400)
[2020-07-08 05:44] LABS: Albumin 1.7 G/DL (3.4-5.0); Calcium 8.1 MG/DL (8.5-10.1); Potassium 4.8 MMOL/L (3.5-5.1); Total Protein 6.5 G/DL (6.4-8.2)
[2020-07-08 05:49] LABS: Platelet Estimate Decreased
[2020-07-08] MEDS: FAMOTIDINE 20 MG/2 ML VIAL IV SCH ×2 (08:08→20:49)
[2020-07-08 20:13] LABS: Bilirubin,Urine Negative (Negative); Blood, Urine Negative (Negative); Glucose,Urine (UA) Negative (Negative); Hyaline Casts,Urine 1 /LPF (0-3); Ketones,Urine Negative (Negative); Mucus,Urine Occasional /LPF (Occasional); Nitrite,Urine Negative (Negative); Protein,Urine 30 MG/DL; Squamous Epithelial Cell,Urine Occasional /HPF (0-10); Urine Appearance CLEAR (Clear); Urine Color Yellow (Yellow); Urine Specific Gravity 1.016 (1.001-1.035)
[2020-07-08] MEDS: ENOXAPARIN 40 MG/0.4 ML SYRINGE SUBCUT SCH (20:49)
[2020-07-09] MEDS: INSULIN LISPRO 100 UNIT/ML SUBCUT SCH ×3 (02:44→08:25)
[2020-07-09 05:27] LABS: Basophils % 0.2 % (0.0-0.8); Eosinophils % 0.2 % (0.00-10.9); Hematocrit 31.5 VOL% (35.7-47.0); Hemoglobin 10.7 GM/DL (12.0-16.0); Immature Granulocytes % 0.9 %; Immature Granulocytes Absolute 0.04 #; Lymphocytes # 1.1 10*3/uL (1.4-4.0); Mean Corpuscular Volume 111.7 FL (87-102); Mean Platelet Volume 11.1 FL (9.6-12.0); Monocytes % 7.3 % (1.7-12.7); Neutrophils % 67.4 % (38.7-73.9); Platelet Count 79 T/CUMM (130-400); Red Blood Count 2.82 MC/CUMM (3.8-5.5); Red Cell Distribution Width 14.9 % (9.3-17.3); White Blood Count 4.6 T/CUMM (4-12)
[2020-07-09 05:50] LABS: Albumin 1.7 G/DL (3.4-5.0); Bilirubin,Total 1.3 MG/DL (0.2-1.0); Calcium 8.2 MG/DL (8.5-10.1); Osmolality,Calculated 284.1 MOS/KG (273-304); Total Protein 6.3 G/DL (6.4-8.2)
[2020-07-09] MEDS ORDERED: FAMOTIDINE 20 MG TABLET PO SCH (09:00)
[2020-07-09 11:36] VITALS: BP 123/59
[2020-07-09] MEDS ORDERED: PNEUMOCOCCAL VACCINE (23 VALENT) 0.5 ML VIAL IM ONE (19:41)
== END 2020-07-09 17:03 | disposition home or self-care (01) | DRG 420 ==
LOC: SUATTDRO 19:29 → N.CC 19:29 → N.5E 07-08 14:58
PROVIDERS: ADMIT Internal Medicine; ATTEND Internal Medicine

== ENCOUNTER 2020-08-27 10:20 | Inpatient (IN) ==
[2020-08-27] MEDS ORDERED: SODIUM CHLORIDE 0.9% 1,000 ML IV STA ×2 (11:05→12:12)
[2020-08-27] MEDS ORDERED: PIPERACILLIN/TAZOBACTAM 3,375 MG in SODIUM CHLORIDE 0.9% 100 ML IV STA (11:06)
[2020-08-27 11:12] LABS: Basophils % 0.3 % (0.0-0.8); Eosinophils % 0.2 % (0.00-10.9); Hematocrit 37.2 VOL% (35.7-47.0); Hemoglobin 12.1 GM/DL (12.0-16.0); Immature Granulocytes % 2.4 %; Immature Granulocytes Absolute 0.33 #; Lymphocytes # 1.1 10*3/uL (1.4-4.0); Lymphocytes % 7.7 % (21.3-54.2); Mean Corpuscular HGB Conc 32.5 GM/DL (32-36); Mean Corpuscular Volume 121.2 FL (87-102); Mean Platelet Volume 11.7 FL (9.6-12.0); Monocytes % 5.9 % (1.7-12.7); NRBC # 0.08 10*3/uL; Neutrophils % 83.5 % (38.7-73.9); Platelet Count 102 T/CUMM (130-400); Red Blood Count 3.07 MC/CUMM (3.8-5.5); Red Cell Distribution Width 18.6 % (9.3-17.3); White Blood Count 13.7 T/CUMM (4-12)
[2020-08-27 11:23] LABS: Albumin 1.8 G/DL (3.4-5.0); Bilirubin,Total 5.8 MG/DL (0.20-1.00); Calcium 8.9 MG/DL (8.5-10.1); Osmolality,Calculated 279.4 MOS/KG (273-304); Potassium 4.1 MMOL/L (3.5-5.1); Total Protein 7.9 G/DL (6.4-8.2)
[2020-08-27 11:31] LABS: Lactic Acid 11.8 MMOL/L (0.4-2.0)
[2020-08-27 11:36] LABS: Thyroid Stimulating Hormone 3.78 uIU/ml (0.358-3.74)
[2020-08-27 11:37] LABS: Platelet Estimate Adequate
[2020-08-27 11:38] LABS: Anisocytosis 1+; Macrocytosis 2+
[2020-08-27 11:40] LABS: Spherocytes Few
[2020-08-27 11:57] LABS: Bacteria,Urine Moderate /HPF (Few); Blood, Urine Large mg/dL (Negative); Glucose,Urine (UA) Negative (Negative); Hyaline Casts,Urine 11 /LPF (0-3); Ketones,Urine Negative (Negative); Mucus,Urine Few /LPF (Occasional); Nitrite,Urine Negative (Negative); Protein,Urine 100 MG/DL; RBC,Urine 37 /HPF (0-4); Urine Appearance CLOUDY (Clear); Urine Color Amber (Yellow); Urine Specific Gravity 1.017 (1.001-1.035)
[2020-08-27 11:59] LABS: Bilirubin,Urine Moderate mg/dL (Negative)
[2020-08-27] MEDS ORDERED: ALBUTEROL 2.5 MG/3 ML NEB RESP TX PRN (12:56)
[2020-08-27] MEDS ORDERED: ONDANSETRON 4 MG/2 ML VIAL IV PRN (12:56)
[2020-08-27] MEDS ORDERED: ENOXAPARIN 30 MG/0.3 ML SYRINGE SUBCUT SCH (13:00)
[2020-08-27] MEDS ORDERED: PANTOPRAZOLE 40 MG VIAL IV SCH (13:00)
[2020-08-27] MEDS ORDERED: GLUCAGON 1 MG VIAL IM PRN (13:05)
[2020-08-27] MEDS ORDERED: DEXTROSE 50% 25 GM/50 ML VIAL IV PRN (13:05)
[2020-08-27] MEDS ORDERED: BENZOCAINE/BUTAMBEN/TETRACAINE SPRAY 20 GM CAN TOP ONE (13:27)
[2020-08-27] MEDS: SODIUM CHLORIDE 0.9% 1,000 ML IV SCH ×2 (13:50→23:46)
[2020-08-27] MEDS: CEFEPIME 1,000 MG in SODIUM CHLORIDE 0.9% 100 ML IV SCH (13:50)
[2020-08-27 13:52] LABS: Barbiturates Screen,Urine Negative (Negative); Benzodiazepines Screen,Urine Negative (Negative); Cannabinoid Screen,Urine Negative (Negative); Opiate Screen,Urine Negative (Negative); Phencyclidine Screen,Urine Negative (Negative)
[2020-08-27] MEDS: ALBUTEROL/IPRATROPIUM 3 ML NEB RESP TX SCH ×2 (14:22→19:30)
[2020-08-27] MEDS ORDERED: VECURONIUM 10 MG VIAL IV ONE ×2 (14:30→14:59)
[2020-08-27] MEDS ORDERED: ETOMIDATE 20 MG/10 ML VIAL IV ONE ×2 (14:30→14:59)
[2020-08-27 14:37] LABS: ABG Base Excess -13.5 MMOL/L (-2.5-2.5); ABG HCO3 8.9 MMOL/L (20-26); ABG Oxygen Saturation 98.9 % (95-100); ABG PO2 159.8 MM HG (80-95); ABG TCO2 9.3 MMOL/L (23-27); Pt O2 Delivery Device Room Air
[2020-08-27] MEDS ORDERED: VANCOMYCIN INJ 1,500 MG in SODIUM CHLORIDE 0.9% 500 ML IV ONE (15:00)
[2020-08-27 15:07] VITALS: BP 101/82
[2020-08-27] MEDS ORDERED: SODIUM HYPOCHLORITE 0.25% IRRIG 473 ML BOTTLE TOP SCH (15:30)
[2020-08-27] MEDS: METRONIDAZOLE 250 MG/50 ML IV SCH ×2 (15:39→22:39)
[2020-08-27] MEDS: LACTULOSE 20 GM/30 ML UDCUP NG SCH ×2 (15:45→21:31)
[2020-08-27 15:51] LABS: ABG Base Excess -19.1 MMOL/L (-2.5-2.5); ABG HCO3 8.9 MMOL/L (20-26); ABG Oxygen Saturation 99.6 % (95-100); ABG PCO2 28.1 MM HG (35-48); ABG PO2 402.6 MM HG (80-95); ABG TCO2 9.8 MMOL/L (23-27)
[2020-08-27 15:56] LABS: ABG PH 7.118 (7.35-7.45)
[2020-08-27] MEDS ORDERED: SODIUM BICARBONATE 50 MEQ/50 ML VIAL IV ONE ×5 (16:00→23:25)
[2020-08-27] MEDS ORDERED: NOREPINEPHRINE 8 MG in SODIUM CHLORIDE 0.9% 242 ML IV PRN (16:01)
[2020-08-27] MEDS ORDERED: LACTATED RINGERS 1,000 ML IV ONE (16:04)
[2020-08-27] MEDS ORDERED: NOREPINEPHRINE 4 MG/4 ML VIAL IV ONE (16:09)
[2020-08-27] MEDS ORDERED: HEPARIN/NACL 0.9% 2 UNITS/ML 1,000 UNIT/500 ML BAG IV ONE (16:22)
[2020-08-27 17:17] LABS: INR 2.4
[2020-08-27] MEDS ORDERED: ROCURONIUM 50 MG/5 ML VIAL IV ONE (17:41)
[2020-08-27] MEDS ORDERED: MIDAZOLAM 2 MG/2 ML VIAL ONE (17:41)
[2020-08-27] MEDS ORDERED: fentaNYL 100 MCG/2 ML VIAL ONE (17:41)
[2020-08-27] MEDS ORDERED: PHENYLEPHRINE 1 MG/10 ML SYRINGE IV ONE (17:41)
[2020-08-27] MEDS ORDERED: VANCOMYCIN INJ 2,500 MG in SODIUM CHLORIDE 0.9% 500 ML IV ONE (18:00)
[2020-08-27] MEDS: INSULIN LISPRO 100 UNIT/ML SUBCUT SCH (18:38)
[2020-08-27] MEDS: SODIUM BICARB INJ 100 MEQ in DEXTROSE 5% 1,000 ML IV SCH (18:39)
[2020-08-27] MEDS: NOREPINEPHRINE 16 MG in SODIUM CHLORIDE 0.9% 234 ML IV PRN ×2 (19:00→23:45)
[2020-08-27] MEDS ORDERED: RIFAXIMIN 550 MG TABLET NG SCH (21:00)
[2020-08-27] MEDS ORDERED: LACTATED RINGERS 500 ML IV ONE (22:31)
[2020-08-27 22:36] LABS: ABG Base Excess -24.7 MMOL/L (-2.5-2.5); ABG HCO3 7.3 MMOL/L (20-26); ABG Oxygen Saturation 98.9 % (95-100); ABG PCO2 28.7 MM HG (35-48); ABG TCO2 6.4 MMOL/L (23-27)
[2020-08-27 22:42] LABS: ABG PH 6.962 (7.35-7.45)
[2020-08-27 22:51] LABS: Albumin 1.5 G/DL (3.4-5.0); Bilirubin,Total 4.9 MG/DL (0.20-1.00); Osmolality,Calculated 282.3 MOS/KG (273-304); Potassium 4.1 MMOL/L (3.5-5.1); Total Protein 6.8 G/DL (6.4-8.2)
[2020-08-27] MEDS ORDERED: ALBUMIN 25% 25 GM/100 ML VIAL IV ONE (23:09)
[2020-08-27] MEDS ORDERED: SODIUM CHLORIDE 0.9% 1,000 ML IV ONE (23:09)
[2020-08-27] MEDS: PHENYLEPHRINE DRIP 40 MG/250 ML PREMIX IV PRN (23:45)
[2020-08-28] MEDS: INSULIN LISPRO 100 UNIT/ML SUBCUT SCH ×2 (01:07→05:55)
[2020-08-28] MEDS: ALBUTEROL/IPRATROPIUM 3 ML NEB RESP TX SCH ×2 (01:12→07:54)
[2020-08-28 01:13] LABS: Hematocrit 35.9 VOL% (35.7-47.0); Hemoglobin 11.1 GM/DL (12.0-16.0)
[2020-08-28] MEDS: CEFEPIME 1,000 MG in SODIUM CHLORIDE 0.9% 100 ML IV SCH (01:26)
[2020-08-28] MEDS: LACTULOSE 20 GM/30 ML UDCUP NG SCH ×2 (01:36→07:04)
[2020-08-28] MEDS ORDERED: SODIUM BICARBONATE 50 MEQ/50 ML SYRINGE IV ONE (01:55)
[2020-08-28] MEDS ORDERED: CALCIUM CHLORIDE 1,000 MG/10 ML SYRINGE IV ONE (01:57)
[2020-08-28] MEDS: NOREPINEPHRINE 16 MG in SODIUM CHLORIDE 0.9% 234 ML IV PRN ×2 (02:23→04:25)
[2020-08-28] MEDS ORDERED: SODIUM CHLORIDE 0.9% 1,000 ML IV ONE (02:24)
[2020-08-28] MEDS: PHENYLEPHRINE DRIP 40 MG/250 ML PREMIX IV PRN ×3 (02:35→04:41)
[2020-08-28] MEDS ORDERED: PHENYLEPHRINE INJ 160 MG in SODIUM CHLORIDE 0.9% 234 ML IV PRN (02:56)
[2020-08-28 04:07] LABS: ABG Base Excess -24.5 MMOL/L (-2.5-2.5); ABG HCO3 7.1 MMOL/L (20-26); ABG Oxygen Saturation 99.5 % (95-100); ABG PCO2 37.8 MM HG (35-48); ABG PO2 284.9 MM HG (80-95); ABG TCO2 8.3 MMOL/L (23-27)
[2020-08-28 04:11] LABS: ABG PH 6.891 (7.35-7.45)
[2020-08-28 04:19] LABS: Basophils # 0.1 10*3/uL (0.0-0.2); Basophils % 0.4 % (0.0-0.8); Eosinophils % 0.2 % (0.00-10.9); Immature Granulocytes % 5.3 %; Immature Granulocytes Absolute 0.99 #; Lymphocytes # 1.4 10*3/uL (1.4-4.0); Lymphocytes % 7.3 % (21.3-54.2); Mean Corpuscular HGB Conc 28.6 GM/DL (32-36); Mean Corpuscular Volume 140.7 FL (87-102); Mean Platelet Volume 9.9 FL (9.6-12.0); Monocytes % 2.6 % (1.7-12.7); Neutrophils % 84.2 % (38.7-73.9); Platelet Count 104 T/CUMM (130-400); Red Blood Count 1.99 MC/CUMM (3.8-5.5); Red Cell Distribution Width 19.3 % (9.3-17.3); White Blood Count 18.6 T/CUMM (4-12)
[2020-08-28 04:22] LABS: Calcium 7.6 MG/DL (8.5-10.1); Potassium 4.1 MMOL/L (3.5-5.1)
[2020-08-28] MEDS: SODIUM BICARB INJ 100 MEQ in DEXTROSE 5% 1,000 ML IV SCH ×2 (04:23→05:07)
[2020-08-28 04:34] LABS: Anisocytosis 1+; Band Neutrophils 2 % (0-10); Hypochromasia Slight; Lymphocytes 4 % (20-55); Macrocytosis 1+; Metamyelocytes 1 %; Myelocytes 1 %; Nucleated Red Blood Cells 1 (0-5); Platelet Estimate Decreased; Polychromasia Slight; Segmented Neutrophils 87 % (50-85); Total Cells Counted 100
[2020-08-28 04:44] LABS: INR 3.4
[2020-08-28] MEDS: METRONIDAZOLE 250 MG/50 ML IV SCH (06:43)
[2020-08-28] MEDS ORDERED: LACTATED RINGERS 2,000 ML IV ONE (07:57)
[2020-08-28] MEDS ORDERED: VANCOMYCIN INJ 1,000 MG in SODIUM CHLORIDE 0.9% 250 ML IV SCH (15:00)
[2020-08-28] MEDS ORDERED: VANCOMYCIN INJ 1,750 MG in SODIUM CHLORIDE 0.9% 500 ML IV SCH (18:00)
== END 2020-08-28 09:15 | disposition expired | DRG 710 ==
LOC: EDUNIT# → N.ED 10:20 → N.EDINP 12:43 → N.ICU 14:01
PROVIDERS: ADMIT Internal Medicine; ATTEND Internal Medicine